=== PATIENT | female | born 1940 | race Asian ===

== ENCOUNTER 2016-11-11 20:58 | Inpatient (IN) | payer OTHER ==
[~2016-11-11] VITALS: Ht 157.5 cm; Wt 97.2 kg
[~2016-11-11 20:58] MED LIST: AMITRIPTYLINE H25 MG PO; AMLODIPINE BESY10 MG PO; AMLODIPINE BESYL5 MG PO; APRESOLINE10 MG PO; APRESOLINE25 MG PO; ASPIR 8181 M1 PO; ASPIR-LOW81 MG PO; ASPIRIN81 M2 PO; ATARAX10 MG PO; AUGMENTIN875 MG PO; CALCITRIOL0.25 MCG PO; CARDIZEM CD120 M1 PO; CARDIZEM CD120 MG PO; CARTIA XT120 MG PO; DOXYCYCLINE HY100 MG PO; DURAGESIC25 MCG TD; DURAGESIC50 MCG TD; ENDOCET 5-3251 EACH PO; ERGOCALCIF50000 UNIT PO; ESCITALOPRAM OX10 MG PO; FAMVIR500 MG PO; FENTANYL1 EAC5 TD; FERROUS SULFAT325 MG PO; FISH OIL 1,0001 EA10 PO; FISH OIL 1,0001 EAC7 PO; FISH OIL 1,0001 EAC8 PO; FUROSEMIDE20 MG PO; HEPARIN SO5000 UNITS SC; HUMALOG100 UNIT/2 SC; HYCODAN SYRUP480 ML PO; HYDRALAZINE HC100 MG PO; HYDROXYZINE HCL10 MG PO; IMDUR60 MG PO; IRON325 M1 PO; IRON325 MG PO; ISOSORBIDE MONO60 MG PO; KENALOG,ARISTOC80 G1 TP; KETOCONAZOLE60 GM TP; LANTUS 3 M100 UNITS1 SC; LASIX20 MG PO; LASIX40 MG PO; LEVAQUIN500 MG PO; LEVEMIR FL100 UNIT/1 SC; LEVOFLOXACIN750 MG PO; LEVOTHYROXINE137 MCG PO; LIDEX 0.05% OIN15 GM TP; LOPRESSOR25 MG PO; LOPRESSOR50 MG PO; LORATADINE10 M2 PO; LYRICA150 MG PO; METOPROLOL TART25 MG PO; METOPROLOL TART50 MG PO; NITROSTAT0.4 MG SL; NORVASC5 MG PO; OMEPRAZOLE20 M2 PO; OMEPRAZOLE20 MG PO; PRADAXA75 MG PO; PRAVASTATIN SOD40 MG PO; PRILOSEC20 MG PO; PROAIR HFA8.5 GM IH; ROCALTROL0.25 MCG PO; ST. JOSEPH ASPI81 MG PO; SYNTHROID137 MCG PO; TRAMADOL HCL50 MG PO; TYLENOL REGULA325 MG PO; ULTRAM50 MG PO; VISINE A.C300 DROP/1 BOTH EYES; VITAMIN D250000 UNIT PO; VOLTAREN 1% GE100 GM TP; XARELTO15 MG PO; ZOCOR40 MG PO
[2016-11-11 21:57] LABS: ADD MIUA? NO; BILIRUBIN NEGATIVE; BLOOD NEGATIVE; COLOR YELLOW ((YELLOW)); GLUCOSE (STRIP) NEGATIVE; KETONES NEGATIVE; LEUKOCYTES NEGATIVE; NITRITE NEGATIVE; PROTEIN (STRIP) NEGATIVE; SPECIFIC GRAVITY 1.012 (1.000-1.030); UCUL ADDED? NO; UROBILINOGEN 0.2 MG/DL (0.2-1.0)
[2016-11-11 22:15] LABS: CHLORIDE 111 mEq/L (99-109); SODIUM 130 mEq/L (136-147)
[2016-11-11 22:18] LABS: GLUCOSE 247 mg/dL (70-99)
[2016-11-11 22:18] LABS: INTER. NORMALIZED RATIO 1.1; PTT 30.9 (25-32)
[2016-11-11 22:19] LABS: ANION GAP 8 MEQ/L (2-14)
[2016-11-11 22:20] LABS: HEMATOCRIT 21.5 % (36.0-46.0); MCH 28.5 PG (29.0-34.0); MCHC 31.2 G/DL (30.0-36.0); MCV 91.5 FL (83-99); MEAN PLAT.VOLUME 12.4 uM^3 (9.5-12.4); NRBC (%) 2.6 /100 WBC (0-0); PLATELET COUNT 173 K/uL (156-360); RBC DIS.WIDTH-CV 18.7 % (11.8-14.6); RBC DIS.WIDTH-SD 59.8 % (39-53); RED BLOOD COUNT 2.35 M/uL (3.80-5.20); WHITE BLOOD COUNT 5.4 K/uL (4.1-10.2)
[2016-11-11 22:20] LABS: POTASSIUM 6.6 mEq/L (3.7-5.4); TOTAL BILIRUBIN 0.3 mg/dL (0.0-1.0)
[2016-11-11 22:21] LABS: ALKALINE PHOSPHATASE 55 IU/L (3-129); GFR ESTIMATE (CALCULATED) 13 mL/min/
[2016-11-11 22:25] LABS: TROP-I INTERPRETATION NEGATIVE; TROPONIN-I < 0.01 ng/mL (0.0-0.30)
[2016-11-11 22:25] LABS: LIPASE 63 U/L (1.0-51.0)
[2016-11-11 22:26] LABS: UREA NITROGEN (BUN) 105 mg/dL (9-23)
[2016-11-11 23:20] VITALS: BP 129/77
[2016-11-11] MEDS ORDERED: LEVO-T137 MCG PO (23:20)
[2016-11-11] MEDS ORDERED: FERROUS SULFAT325 MG PO (23:21)
[2016-11-11] MEDS ORDERED: OMEPRAZOLE20 MG PO (23:21)
[2016-11-11] MEDS ORDERED: NORVASC10 MG PO (23:22)
[2016-11-11] MEDS ORDERED: ISOSORBIDE MONO60 MG PO (23:22)
[2016-11-11] MEDS ORDERED: CALCITRIOL0.25 MCG PO (23:22)
[2016-11-11] MEDS ORDERED: ASPIR 8181 M1 PO (23:22)
[2016-11-11] MEDS ORDERED: HYDRALAZINE HCL25 MG PO (23:23)
[2016-11-11] MEDS ORDERED: LYRICA150 MG PO (23:23)
[2016-11-11] MEDS ORDERED: TRAMADOL HCL50 MG PO (23:23)
[2016-11-11] MEDS ORDERED: LANTUS 3 M100 UNITS1 SC (23:24)
[2016-11-11] MEDS ORDERED: XARELTO15 MG PO (23:24)
[2016-11-11] MEDS ORDERED: HUMALOG100 UNIT/2 SC (23:24)
[2016-11-11] MEDS ORDERED: PRAVASTATIN SOD40 MG PO (23:24)
[2016-11-11] MEDS ORDERED: NITROGLYCERIN0.4 MG SL (23:25)
[2016-11-11] MEDS ORDERED: PROAIR HFA8.5 GM IH (23:25)
[2016-11-11] MEDS ORDERED: LIDEX 0.05% OIN15 GM TP (23:26)
[2016-11-11] MEDS ORDERED: TRIAMCINOLONE A15 G2 TP (23:27)
[2016-11-11] MEDS ORDERED: OMEGA 3 500 SO1 EACH PO (23:27)
[2016-11-11 23:38] VITALS: BP 103/61
[2016-11-12] VITALS (21 sets, daily range): BP systolic 94–133; BP diastolic 55–690
[2016-11-12 01:01] LABS: POINT-OF-CARE METER ID UU14162508
[2016-11-12 06:46] LABS: METH RESISTANT S AUREUS PCR POSITIVE (NEGATIVE)
[2016-11-12 06:47] LABS: PROBE CHECK PASS
[2016-11-12 07:00] LABS: POINT-OF-CARE METER ID UU14162508
[2016-11-12] MEDS ORDERED: HUMALOG100 UNIT/2 SC (11:41)
[2016-11-12 11:56] LABS: POINT-OF-CARE METER ID UU14162508
[2016-11-12 12:33] LABS: ANION GAP 7 MEQ/L (2-14); CHLORIDE 112 MEQ/L (99-109); GFR ESTIMATE (CALCULATED) 16 mL/min/; GLUCOSE 132 mg/dL (70-99); SAMPLE HEMOLYSIS CHECK 0; SAMPLE ICTERIC CHECK 0; SAMPLE LIPEMIA CHECK 0; SODIUM 136 MEQ/L (136-147); UREA NITROGEN (BUN) 89 mg/dL (9-23)
[2016-11-12 12:33] LABS: IRON 37 MCG/DL (35-150)
[2016-11-12 12:34] LABS: POTASSIUM 4.9 MEQ/L (3.7-5.4)
[2016-11-12 18:01] LABS: HEMATOCRIT 30.7 % (36.0-46.0); MCH 28.2 PG (29.0-34.0); MCHC 31.3 G/DL (30.0-36.0); NRBC (%) 1.6 /100 WBC (0-0); PLATELET COUNT 138 K/uL (156-360); RBC DIS.WIDTH-SD 56.4 % (39-53); WHITE BLOOD COUNT 6.9 K/uL (4.1-10.2)
[2016-11-12 18:58] LABS: RED BLOOD COUNT 3.41 M/uL (3.80-5.20)
[2016-11-12 21:44] LABS: POINT-OF-CARE METER ID UU14162508
[2016-11-13 03:08] VITALS: BP 136/74
[2016-11-13 06:41] LABS: HEMATOCRIT 33.5 % (36.0-46.0); MCH 28.1 PG (29.0-34.0); MCHC 31.3 G/DL (30.0-36.0); MCV 89.6 FL (83-99); MEAN PLAT.VOLUME 11.8 uM^3 (9.5-12.4); NRBC (%) 1.3 /100 WBC (0-0); PLATELET COUNT 140 K/uL (156-360); RBC DIS.WIDTH-CV 18.3 % (11.8-14.6); RBC DIS.WIDTH-SD 55.5 % (39-53); RED BLOOD COUNT 3.74 M/uL (3.80-5.20); WHITE BLOOD COUNT 8.6 K/uL (4.1-10.2)
[2016-11-13 07:00] LABS: POINT-OF-CARE METER ID UU14162508
[2016-11-13 07:05] LABS: ANION GAP 10 MEQ/L (2-14); CHLORIDE 111 MEQ/L (99-109); GFR ESTIMATE (CALCULATED) 16 mL/min/; GLUCOSE 145 mg/dL (70-99); POTASSIUM 4.4 MEQ/L (3.7-5.4); SAMPLE HEMOLYSIS CHECK 0; SAMPLE ICTERIC CHECK 0; SAMPLE LIPEMIA CHECK 0; SODIUM 138 MEQ/L (136-147); UREA NITROGEN (BUN) 77 mg/dL (9-23)
[2016-11-13 07:40] VITALS: BP 136/81
[2016-11-13 07:44] LABS: INTACT PARATHYROID HORMONE 179 pg/mL (10-69)
[2016-11-13 11:35] VITALS: BP 139/69
[2016-11-13 15:55] VITALS: BP 117/67
[2016-11-13 20:03] VITALS: BP 158/68
[2016-11-14 00:20] VITALS: BP 126/79
[2016-11-14 04:20] VITALS: BP 137/71
[2016-11-14 07:10] VITALS: BP 112/63
[2016-11-14 07:29] LABS: ANION GAP 10 MEQ/L (2-14); CHLORIDE 111 MEQ/L (99-109); GFR ESTIMATE (CALCULATED) 20 mL/min/; GLUCOSE 134 mg/dL (70-99); POTASSIUM 4.6 MEQ/L (3.7-5.4); SAMPLE HEMOLYSIS CHECK 0; SAMPLE ICTERIC CHECK 0; SAMPLE LIPEMIA CHECK 0; SODIUM 140 MEQ/L (136-147); UREA NITROGEN (BUN) 58 mg/dL (9-23)
[2016-11-14 15:44] LABS: POINT-OF-CARE METER ID UU13113694
[2016-11-14 16:47] LABS: POINT-OF-CARE METER ID UU13113819
[2016-11-14 17:45] VITALS: BP 124/71
[2016-11-14 21:48] VITALS: BP 123/89
[2016-11-14 22:14] LABS: POINT-OF-CARE METER ID UU14162508
[2016-11-15 00:26] VITALS: BP 118/62
[2016-11-15 03:44] VITALS: BP 129/76
[2016-11-15 07:15] LABS: POINT-OF-CARE METER ID UU14162508
[2016-11-15 07:31] LABS: ANION GAP 6 MEQ/L (2-14); CHLORIDE 112 MEQ/L (99-109); GFR ESTIMATE (CALCULATED) 21 mL/min/; POTASSIUM 4.8 MEQ/L (3.7-5.4); SAMPLE HEMOLYSIS CHECK 0; SAMPLE ICTERIC CHECK 0; SAMPLE LIPEMIA CHECK 0; SODIUM 138 MEQ/L (136-147); UREA NITROGEN (BUN) 50 mg/dL (9-23)
[2016-11-15 07:36] LABS: GLUCOSE 235 mg/dL (70-99)
[2016-11-15 08:00] VITALS: BP 129/81
[2016-11-15 12:07] LABS: POINT-OF-CARE METER ID UU14162508
[2016-11-15 15:42] VITALS: BP 128/83
[2016-11-15 15:53] LABS: POINT-OF-CARE METER ID UU14162508
[2016-11-15 19:58] VITALS: BP 138/796
[2016-11-15 23:49] VITALS: BP 121/73
[2016-11-16 03:59] VITALS: BP 139/67
[2016-11-16 07:19] VITALS: BP 157/73
[2016-11-16 11:19] VITALS: BP 121/56
[2016-11-16 15:53] VITALS: BP 134/64
[2016-11-16 19:38] VITALS: BP 119/56
[2016-11-16 23:13] VITALS: BP 129/68
[2016-11-17 03:08] VITALS: BP 124/58
[2016-11-17 06:42] LABS: POINT-OF-CARE METER ID UU14162508
[2016-11-17 07:06] VITALS: BP 138/92
[2016-11-17 11:46] VITALS: BP 131/76
[2016-11-17 16:06] VITALS: BP 128/72
[2016-11-17 19:33] VITALS: BP 125/68
[2016-11-17 19:34] LABS: CHLORIDE 108 mEq/L (99-109); POTASSIUM 4.8 mEq/L (3.7-5.4); SODIUM 134 mEq/L (136-147)
[2016-11-17 19:37] LABS: ANION GAP 7 MEQ/L (2-14); GLUCOSE 103 mg/dL (70-99)
[2016-11-17 19:40] LABS: GFR ESTIMATE (CALCULATED) 23 mL/min/
[2016-11-17 19:41] LABS: UREA NITROGEN (BUN) 35 mg/dL (9-23)
[2016-11-17 23:18] VITALS: BP 131/65
[2016-11-18 03:39] VITALS: BP 130/61
[2016-11-18 06:25] LABS: HEMATOCRIT 34.3 % (36.0-46.0); MCH 31.1 PG (29.0-34.0); MCHC 34.4 G/DL (30.0-36.0); MCV 90.5 FL (83-99); RBC DIS.WIDTH-CV 19.7 % (11.8-14.6); RBC DIS.WIDTH-SD 58.9 % (39-53); RED BLOOD COUNT 3.79 M/uL (3.80-5.20)
[2016-11-18 06:50] LABS: ALKALINE PHOSPHATASE 52 IU/L (3-129); ANION GAP 9 MEQ/L (2-14); CHLORIDE 105 MEQ/L (99-109); GFR ESTIMATE (CALCULATED) 23 mL/min/; GLUCOSE 157 mg/dL (70-99); SAMPLE HEMOLYSIS CHECK 0; SAMPLE ICTERIC CHECK 0; SAMPLE LIPEMIA CHECK 0; SODIUM 134 MEQ/L (136-147); TOTAL BILIRUBIN 0.6 MG/DL (0.0-1.0); UREA NITROGEN (BUN) 32 mg/dL (9-23)
[2016-11-18 07:08] VITALS: BP 144/76
[2016-11-18 11:20] VITALS: BP 132/62
[2016-11-18 15:21] VITALS: BP 147/73
[2016-11-18 19:24] VITALS: BP 137/66
[2016-11-18] MEDS ORDERED: CARDIZEM CD180 MG PO (19:57)
[2016-11-18] MEDS ORDERED: LEVEMIR100 UNIT/2 SC (20:13)
[2016-11-18] MEDS ORDERED: POLYETHYLENE GL17 GM PO (20:20)
== END 2016-11-18 21:56 | disposition home or self-care (01) | DRG 378 ==
LOC: EME 20:58 → 2EAST 22:52 → EDOF 22:52 → 2EAST 11-12 00:41
PROVIDERS: Emergency Medicine; Internal Medicine; Internal Medicine Nephrology
PROC: 0DB68ZX Excision of Stomach, Via Natural or Artificial Opening Endoscopic, Diagnostic (ICD-10-PCS; principal; 2016-11-14)
DX: K92.2 Gastrointestinal hemorrhage, unspecified (principal); N17.9 Acute kidney failure, unspecified; D25.9 Leiomyoma of uterus, unspecified; E87.5 Hyperkalemia; D63.1 Anemia in chronic kidney disease; E87.1 Hypo-osmolality and hyponatremia; K92.1 Melena; E11.22 Type 2 diabetes mellitus with diabetic chronic kidney disease; E87.2 Acidosis; I12.9 Hypertensive chronic kidney disease with stage 1 through stage 4 chronic kidney disease, or unspecified chronic kidney disease; N18.4 Chronic kidney disease, stage 4 (severe); K29.90 Gastroduodenitis, unspecified, without bleeding; N25.81 Secondary hyperparathyroidism of renal origin; E66.01 Morbid (severe) obesity due to excess calories; I25.10 Atherosclerotic heart disease of native coronary artery without angina pectoris; N28.9 Disorder of kidney and ureter, unspecified; R41.82 Altered mental status, unspecified; K30 Functional dyspepsia; E78.5 Hyperlipidemia, unspecified; G89.29 Other chronic pain; E03.9 Hypothyroidism, unspecified; R80.9 Proteinuria, unspecified; R60.0 Localized edema; M54.9 Dorsalgia, unspecified; R53.1 Weakness; I48.0 Paroxysmal atrial fibrillation; E86.9 Volume depletion, unspecified; R79.89 Other specified abnormal findings of blood chemistry; K29.70 Gastritis, unspecified, without bleeding; Z95.5 Presence of coronary angioplasty implant and graft; Z86.73 Personal history of transient ischemic attack (TIA), and cerebral infarction without residual deficits; I25.2 Old myocardial infarction; Z68.38 Body mass index [BMI] 38.0-38.9, adult; Q43.8 Other specified congenital malformations of intestine
CPT/HCPCS: 36415; 74176; 80053; 80061; 80069; 81003; 82306; 82948; 83036; 83540; 83605; 83690; 83970; 84100; 84439; 84443; 84466; 84484; 85025; 85027; 85610; 85730; 86900; 86901; 86920; 87641; 88305; 88342 TC; 93005; 99202; 99281; 99285; J1170; J1756; J1815; J1940; J2250; J2270; J2405; J3010; J7030; J7050; P9016; Q0177

== ENCOUNTER 2016-12-22 20:58 | Emergency (ER) | payer OTHER ==
[~2016-12-22] VITALS: Ht 139.7 cm; Wt 99.8 kg
[~2016-12-22 20:58] MED LIST changes: +CARDIZEM CD180 MG PO; +HYDRALAZINE HCL25 MG PO; +LEVEMIR100 UNIT/2 SC; +LEVO-T137 MCG PO; +NITROGLYCERIN0.4 MG SL; +NORVASC10 MG PO; +OMEGA 3 500 SO1 EACH PO; +POLYETHYLENE GL17 GM PO; +TRIAMCINOLONE A15 G2 TP
[2016-12-22 21:19] LABS: HEMATOCRIT 33.9 % (36.0-46.0); MCH 28.4 PG (29.0-34.0); MCHC 31.6 G/DL (30.0-36.0); MCV 89.9 FL (83-99); MEAN PLAT.VOLUME 10.8 uM^3 (9.5-12.4); PLATELET COUNT 195 K/uL (156-360); RBC DIS.WIDTH-SD 49.5 % (39-53); RED BLOOD COUNT 3.77 M/uL (3.80-5.20); WHITE BLOOD COUNT 5.4 K/uL (4.1-10.2)
[2016-12-22 21:44] LABS: CHLORIDE 101 mEq/L (99-109); POTASSIUM 4.8 mEq/L (3.7-5.4); SODIUM 132 mEq/L (136-147)
[2016-12-22 21:45] LABS: GLUCOSE 170 mg/dL (70-99)
[2016-12-22 21:47] LABS: ANION GAP 8 MEQ/L (2-14)
[2016-12-22 21:49] LABS: GFR ESTIMATE (CALCULATED) 18 mL/min/
[2016-12-22 21:50] LABS: UREA NITROGEN (BUN) 38 mg/dL (9-23)
[2016-12-22 21:58] LABS: INTER. NORMALIZED RATIO 1.1; PROTHROMBIN TIME 11.3 (9.2-11.2)
[2016-12-23 02:22] VITALS: BP 119/91
== END 2016-12-23 02:24 | disposition home or self-care (01) ==
LOC: EME → EDBD 20:58 → EME 12-23 02:24
PROVIDERS: Emergency Medicine
DX: S01.81XA Laceration without foreign body of other part of head, initial encounter (principal); E11.9 Type 2 diabetes mellitus without complications; E78.5 Hyperlipidemia, unspecified; W18.30XA Fall on same level, unspecified, initial encounter; I11.0 Hypertensive heart disease with heart failure; I50.9 Heart failure, unspecified; I25.2 Old myocardial infarction; Z79.84 Long term (current) use of oral hypoglycemic drugs
CPT/HCPCS: 70450; 73564; 80048; 85027; 85610; 99281; 99285

== ENCOUNTER 2017-06-03 17:06 | Inpatient (IN) | payer OTHER ==
[~2017-06-03] VITALS: Ht 157.5 cm; Wt 94.5 kg
[2017-06-03 17:49] LABS: EOSINOPHIL (%) 3.4 % (0-5); EOSINOPHIL COUNT 0.2 K/uL (0-0.3); HEMATOCRIT 34.3 % (36.0-46.0); IMMATURE GRANULOCYTE (%) 0.4 % (0.0-0.7); INSTRUMENT ABS NEUTROPHIL CT 5.1 K/uL; LYMPHOCYTE COUNT 0.7 K/uL (1.0-2.8); MCH 29.6 PG (29.0-34.0); MCHC 32.4 G/DL (30.0-36.0); MCV 91.5 FL (83-99); MEAN PLAT.VOLUME 12.6 uM^3 (9.5-12.4); MONOCYTE (%) 9.8 % (3-12); MONOCYTE COUNT 0.7 K/uL (0-0.8); NEUTROPHIL (%) 76.1 % (45-76); NEUTROPHIL COUNT 5.1 K/uL (1.8-6.4); PLATELET COUNT 111 K/uL (156-360); RBC DIS.WIDTH-CV 14.8 % (11.8-14.6); RBC DIS.WIDTH-SD 49.7 % (39-53); RED BLOOD COUNT 3.75 M/uL (3.80-5.20); WHITE BLOOD COUNT 6.7 K/uL (4.1-10.2)
[2017-06-03 17:55] LABS: INTER. NORMALIZED RATIO 1.3
[2017-06-03 17:57] LABS: PTT 41.3 SEC (25-37)
[2017-06-03 18:00] LABS: CHLORIDE 102 mEq/L (99-109); POTASSIUM 3.6 mEq/L (3.7-5.4); SODIUM 138 mEq/L (136-147)
[2017-06-03 18:01] LABS: GLUCOSE 119 mg/dL (70-99)
[2017-06-03 18:03] LABS: ANION GAP 10 MEQ/L (2-14)
[2017-06-03 18:05] LABS: GFR ESTIMATE (CALCULATED) 23 mL/min/
[2017-06-03 18:06] LABS: UREA NITROGEN (BUN) 41 mg/dL (9-23)
[2017-06-03 18:12] LABS: TROP-I INTERPRETATION NEGATIVE; TROPONIN-I < 0.01 ng/mL (0.0-0.30)
[2017-06-03 18:23] LABS: ADD MIUA? NO; BILIRUBIN NEGATIVE; BLOOD NEGATIVE; COLOR STRAW ((YELLOW)); GLUCOSE (STRIP) NEGATIVE; KETONES NEGATIVE; LEUKOCYTES NEGATIVE; NITRITE NEGATIVE; PROTEIN (STRIP) NEGATIVE; SPECIFIC GRAVITY 1.006 (1.000-1.030); UCUL ADDED? NO; UROBILINOGEN 0.2 MG/DL (0.2-1.0)
[2017-06-03] MEDS ORDERED: LOPRESSOR50 MG PO (22:02)
[2017-06-03] MEDS ORDERED: ATARAX10 MG PO (22:03)
[2017-06-03] MEDS ORDERED: LANTUS 3 M100 UNITS1 SC (22:12)
[2017-06-03] MEDS ORDERED: FUROSEMIDE40 MG PO (22:17)
[2017-06-03] MEDS ORDERED: CIPROFLOXACIN500 M1 PO (22:19)
[2017-06-04] VITALS (18 sets, daily range): BP systolic 0–167; BP diastolic 0–110
[2017-06-04 03:01] LABS: METH RESISTANT S AUREUS PCR NEGATIVE (NEGATIVE)
[2017-06-04 03:05] LABS: PROBE CHECK PASS; SPECIMEN PROCESSING CONTROL PASS
[2017-06-04 05:34] LABS: MCH 29.1 PG (29.0-34.0); MCHC 31.4 G/DL (30.0-36.0); MCV 92.6 FL (83-99); PLATELET COUNT 104 K/uL (156-360); RBC DIS.WIDTH-CV 15.2 % (11.8-14.6); RBC DIS.WIDTH-SD 51.7 % (39-53); RED BLOOD COUNT 3.78 M/uL (3.80-5.20)
[2017-06-04 05:56] LABS: ANION GAP 10 MEQ/L (2-14); CHLORIDE 103 MEQ/L (99-109); GFR ESTIMATE (CALCULATED) 26 mL/min/; GLUCOSE 109 mg/dL (70-99); HDL CHOLESTEROL 27 MG/DL (Desirable>=50); LDL CHOLESTEROL 26 mg/dL (Desirable<100); NON-HDL CHOLESTEROL 38 mg/dL (Desirable<160); POTASSIUM 3.5 MEQ/L (3.7-5.4); SAMPLE HEMOLYSIS CHECK 0; SAMPLE ICTERIC CHECK 0; SAMPLE LIPEMIA CHECK 0; SODIUM 142 MEQ/L (136-147); TOTAL CHOLESTEROL 65 mg/dL (Desirable<200); TRIGLYCERIDES 62 MG/DL (Normal: <150); UREA NITROGEN (BUN) 40 mg/dL (9-23)
[2017-06-04 07:32] LABS: Estimated Average Glucose 146 mg/dL (70-123); HEMOGLOBIN A1c (GLYCOHEMOGLOB) 6.7 % HGB (Below 5.7)
[2017-06-04 13:13] LABS: POINT-OF-CARE METER ID UU14162513
[2017-06-04 16:17] LABS: BASE EXCESS -0.4 mEq/L (-3 to +3); BICARBONATE 25.9 mEq/L (22-26); CARBOXY HGB 1.1 % (0-5); PCO2 48 mm Hg (35-45); PO2 59 mm Hg (80-100); pH 7.34 (7.35-7.45)
[2017-06-04 16:18] LABS: DEVICE NC; O2 FLOW 4 L/MIN; SITE RR; TOTAL RESP RATE 26 resp/min
[2017-06-04 16:35] LABS: HEMATOCRIT 38.2 % (36.0-46.0); MCH 29.9 PG (29.0-34.0); MCHC 31.7 G/DL (30.0-36.0); MCV 94.3 FL (83-99); MEAN PLAT.VOLUME 12.9 uM^3 (9.5-12.4); PLATELET COUNT 114 K/uL (156-360); RBC DIS.WIDTH-CV 15.2 % (11.8-14.6); RBC DIS.WIDTH-SD 53.2 % (39-53); RED BLOOD COUNT 4.05 M/uL (3.80-5.20); WHITE BLOOD COUNT 8.8 K/uL (4.1-10.2)
[2017-06-04 16:43] LABS: POINT-OF-CARE METER ID UU13113781; POINT-OF-CARE USER ID ENVKC36
[2017-06-04 16:56] LABS: TROP-I INTERPRETATION NEGATIVE; TROPONIN-I 0.01 ng/mL (0.0-0.30)
[2017-06-04 17:18] LABS: ADD MIUA? YES; BILIRUBIN NEGATIVE; BLOOD SMALL; COLOR STRAW ((YELLOW)); GLUCOSE (STRIP) NEGATIVE; KETONES NEGATIVE; LEUKOCYTES NEGATIVE; NITRITE NEGATIVE; PROTEIN (STRIP) 30; SPECIFIC GRAVITY 1.006 (1.000-1.030); UROBILINOGEN 0.2 MG/DL (0.2-1.0)
[2017-06-04 17:41] LABS: POINT-OF-CARE METER ID UU14208751
[2017-06-04 17:55] LABS: BACTERIA NONE SEEN /HPF; EPITHELIAL CELLS NONE SEEN /HPF; MUCUS TRACE /LPF; RED BLOOD CELLS 0-5 /HPF (0-5); UCUL ADDED? NO; WHITE BLOOD CELLS 0-5 /HPF (0-5)
[2017-06-04 18:39] LABS: METH RESISTANT S AUREUS PCR NEGATIVE (NEGATIVE)
[2017-06-04 19:29] LABS: PROBE CHECK PASS; SPECIMEN PROCESSING CONTROL PASS
[2017-06-04 22:07] LABS: POINT-OF-CARE METER ID UU13113803
[2017-06-05] VITALS (20 sets, daily range): BP systolic 93–169; BP diastolic 48–106
[2017-06-05 00:37] LABS: POINT-OF-CARE METER ID UU14208751
[2017-06-05 05:58] LABS: POINT-OF-CARE METER ID UU14314082
[2017-06-05 06:31] LABS: HEMATOCRIT 35.7 % (36.0-46.0); MCHC 31.4 G/DL (30.0-36.0); MCV 92.5 FL (83-99); MEAN PLAT.VOLUME 11.7 uM^3 (9.5-12.4); PLATELET COUNT 103 K/uL (156-360); RBC DIS.WIDTH-CV 15.1 % (11.8-14.6); RBC DIS.WIDTH-SD 51.5 % (39-53); RED BLOOD COUNT 3.86 M/uL (3.80-5.20); WHITE BLOOD COUNT 5.3 K/uL (4.1-10.2)
[2017-06-05 07:05] LABS: ALKALINE PHOSPHATASE 113 IU/L (3-129); ANION GAP 10 MEQ/L (2-14); CHLORIDE 101 MEQ/L (99-109); GFR ESTIMATE (CALCULATED) 24 mL/min/; GLUCOSE 184 mg/dL (70-99); POTASSIUM 3.4 MEQ/L (3.7-5.4); SAMPLE HEMOLYSIS CHECK 0; SAMPLE ICTERIC CHECK 0; SAMPLE LIPEMIA CHECK 0; SODIUM 140 MEQ/L (136-147); TOTAL BILIRUBIN 0.7 MG/DL (0.0-1.0); UREA NITROGEN (BUN) 37 mg/dL (9-23)
[2017-06-05 12:12] LABS: POINT-OF-CARE METER ID UU14314082
[2017-06-05 18:25] LABS: POINT-OF-CARE METER ID UU14162636
[2017-06-05 22:49] LABS: POINT-OF-CARE METER ID UU14162636
[2017-06-06] VITALS (13 sets, daily range): BP systolic 103–144; BP diastolic 43–94
[2017-06-06 06:25] LABS: EOSINOPHIL (%) 8.4 % (0-5); EOSINOPHIL COUNT 0.4 K/uL (0-0.3); HEMATOCRIT 34.9 % (36.0-46.0); IMMATURE GRANULOCYTE (%) 0.2 % (0.0-0.7); INSTRUMENT ABS NEUTROPHIL CT 2.6 K/uL; LYMPHOCYTE COUNT 0.8 K/uL (1.0-2.8); MCHC 32.4 G/DL (30.0-36.0); MCV 92.6 FL (83-99); MEAN PLAT.VOLUME 12.9 uM^3 (9.5-12.4); MONOCYTE (%) 12.5 % (3-12); MONOCYTE COUNT 0.6 K/uL (0-0.8); NEUTROPHIL (%) 59.6 % (45-76); NEUTROPHIL COUNT 2.6 K/uL (1.8-6.4); PLATELET COUNT 109 K/uL (156-360); RBC DIS.WIDTH-CV 15.3 % (11.8-14.6); RBC DIS.WIDTH-SD 52.4 % (39-53); RED BLOOD COUNT 3.77 M/uL (3.80-5.20); WHITE BLOOD COUNT 4.4 K/uL (4.1-10.2)
[2017-06-06 06:45] LABS: ALKALINE PHOSPHATASE 114 IU/L (3-129); ANION GAP 9 MEQ/L (2-14); CHLORIDE 103 MEQ/L (99-109); DIRECT BILIRUBIN 0.2 mg/dL (0.0-0.3); GFR ESTIMATE (CALCULATED) 24 mL/min/; GLUCOSE 126 mg/dL (70-99); MAGNESIUM 1.7 mg/dl (1.3-2.7); POTASSIUM 3.8 MEQ/L (3.7-5.4); SAMPLE HEMOLYSIS CHECK 0; SAMPLE ICTERIC CHECK 0; SAMPLE LIPEMIA CHECK 0; SODIUM 143 MEQ/L (136-147); TOTAL BILIRUBIN 0.5 MG/DL (0.0-1.0); UREA NITROGEN (BUN) 37 mg/dL (9-23)
[2017-06-06 12:15] LABS: POINT-OF-CARE METER ID UU13113731
[2017-06-06 17:13] LABS: POINT-OF-CARE METER ID UU13113731
[2017-06-06 21:49] LABS: POINT-OF-CARE METER ID UU13113774
[2017-06-07 00:13] VITALS: BP 146/70
[2017-06-07 06:18] LABS: HEMATOCRIT 34.1 % (36.0-46.0); MCH 29.9 PG (29.0-34.0); MCHC 32.8 G/DL (30.0-36.0); MCV 91.2 FL (83-99); MEAN PLAT.VOLUME 12.7 uM^3 (9.5-12.4); PLATELET COUNT 107 K/uL (156-360); RBC DIS.WIDTH-CV 15.1 % (11.8-14.6); RBC DIS.WIDTH-SD 50.4 % (39-53); RED BLOOD COUNT 3.74 M/uL (3.80-5.20); WHITE BLOOD COUNT 4.1 K/uL (4.1-10.2)
[2017-06-07 06:48] LABS: ANION GAP 9 MEQ/L (2-14); CHLORIDE 100 MEQ/L (99-109); GFR ESTIMATE (CALCULATED) 22 mL/min/; POTASSIUM 3.8 MEQ/L (3.7-5.4); SAMPLE HEMOLYSIS CHECK 0; SAMPLE ICTERIC CHECK 0; SAMPLE LIPEMIA CHECK 0; SODIUM 139 MEQ/L (136-147); UREA NITROGEN (BUN) 36 mg/dL (9-23)
[2017-06-07 06:50] LABS: GLUCOSE 311 mg/dL (70-99)
[2017-06-07 08:53] VITALS: BP 141/63
[2017-06-07 11:43] VITALS: BP 134/75
[2017-06-07 13:03] LABS: POINT-OF-CARE METER ID UU13113774
[2017-06-07 15:39] VITALS: BP 134/75
[2017-06-07 15:57] LABS: POINT-OF-CARE METER ID UU13113774
[2017-06-07 19:52] VITALS: BP 124/55
[2017-06-07 21:29] LABS: POINT-OF-CARE METER ID UU13113725
[2017-06-08 00:09] VITALS: BP 119/64; BP 124/55
[2017-06-08 05:30] VITALS: BP 120/61
[2017-06-08 05:59] LABS: HEMATOCRIT 32.1 % (36.0-46.0); MCH 29.4 PG (29.0-34.0); MCHC 32.7 G/DL (30.0-36.0); MCV 89.9 FL (83-99); MEAN PLAT.VOLUME 12.2 uM^3 (9.5-12.4); PLATELET COUNT 111 K/uL (156-360); RBC DIS.WIDTH-CV 14.9 % (11.8-14.6); RBC DIS.WIDTH-SD 49.4 % (39-53); RED BLOOD COUNT 3.57 M/uL (3.80-5.20); WHITE BLOOD COUNT 6.1 K/uL (4.1-10.2)
[2017-06-08 06:30] LABS: POINT-OF-CARE METER ID UU13113774
[2017-06-08 07:33] LABS: ANION GAP ND MEQ/L (2-14); CHLORIDE 98 MEQ/L (99-109); GLUCOSE 159 mg/dL (70-99); POTASSIUM 4.2 MEQ/L (3.7-5.4); SAMPLE HEMOLYSIS CHECK 0; SAMPLE ICTERIC CHECK 0; SAMPLE LIPEMIA CHECK 0; SODIUM 136 MEQ/L (136-147); UREA NITROGEN (BUN) 48 mg/dL (9-23)
[2017-06-08 07:54] VITALS: BP 127/60
[2017-06-08 08:02] LABS: GFR ESTIMATE (CALCULATED) 21 mL/min/
[2017-06-08 11:53] LABS: POINT-OF-CARE METER ID UU13113774
[2017-06-08 13:36] VITALS: BP 108/57
[2017-06-08 15:48] VITALS: BP 119/59
[2017-06-08 16:57] LABS: POINT-OF-CARE METER ID UU13113725
[2017-06-08 20:01] VITALS: BP 130/61
[2017-06-09 00:05] VITALS: BP 138/67
[2017-06-09 01:41] LABS: GLUCOSE 552 mg/dL (70-99)
[2017-06-09 04:21] VITALS: BP 124/59
[2017-06-09 06:10] LABS: HEMATOCRIT 35.9 % (36.0-46.0); MCH 28.5 PG (29.0-34.0); MCHC 31.5 G/DL (30.0-36.0); MCV 90.7 FL (83-99); MEAN PLAT.VOLUME 12.1 uM^3 (9.5-12.4); PLATELET COUNT 124 K/uL (156-360); RBC DIS.WIDTH-CV 14.6 % (11.8-14.6); RBC DIS.WIDTH-SD 48.8 % (39-53); RED BLOOD COUNT 3.96 M/uL (3.80-5.20); WHITE BLOOD COUNT 5.8 K/uL (4.1-10.2)
[2017-06-09 06:49] LABS: ANION GAP 12 MEQ/L (2-14); CHLORIDE 94 MEQ/L (99-109); GFR ESTIMATE (CALCULATED) 18 mL/min/; POTASSIUM 4.6 MEQ/L (3.7-5.4); SAMPLE HEMOLYSIS CHECK 0; SAMPLE ICTERIC CHECK 0; SAMPLE LIPEMIA CHECK 0; SODIUM 130 MEQ/L (136-147); UREA NITROGEN (BUN) 60 mg/dL (9-23)
[2017-06-09 06:50] LABS: GLUCOSE 470 mg/dL (70-99)
[2017-06-09 07:21] LABS: POINT-OF-CARE METER ID UU13113725
[2017-06-09 11:59] LABS: POINT-OF-CARE METER ID UU13113725
[2017-06-09 15:24] LABS: POINT-OF-CARE METER ID UU13113725
[2017-06-09 15:24] LABS: POINT-OF-CARE METER ID UU13113774
[2017-06-09 15:24] LABS: POINT-OF-CARE METER ID UU13113774
[2017-06-09 15:24] LABS: POINT-OF-CARE METER ID UU13113725
[2017-06-09 17:17] VITALS: BP 126/61
[2017-06-09 19:49] VITALS: BP 139/65
[2017-06-10 00:33] VITALS: BP 135/62
[2017-06-10 04:00] VITALS: BP 139/86
[2017-06-10 05:54] LABS: POINT-OF-CARE METER ID UU13113774
[2017-06-10 07:00] VITALS: BP 140/76
[2017-06-10 09:51] LABS: POINT-OF-CARE METER ID UU13113774
[2017-06-10 09:53] LABS: HEMATOCRIT 35.2 % (36.0-46.0); MCH 28.9 PG (29.0-34.0); MCHC 32.7 G/DL (30.0-36.0); MCV 88.4 FL (83-99); RBC DIS.WIDTH-CV 14.6 % (11.8-14.6); RBC DIS.WIDTH-SD 46.6 % (39-53); RED BLOOD COUNT 3.98 M/uL (3.80-5.20); WHITE BLOOD COUNT 8.9 K/uL (4.1-10.2)
[2017-06-10 10:06] LABS: PLATELET COUNT 167 K/uL (156-360)
[2017-06-10 10:31] LABS: ANION GAP 10 MEQ/L (2-14); CHLORIDE 96 MEQ/L (99-109); GFR ESTIMATE (CALCULATED) 19 mL/min/; POTASSIUM 3.8 MEQ/L (3.7-5.4); SAMPLE HEMOLYSIS CHECK 0; SAMPLE ICTERIC CHECK 0; SAMPLE LIPEMIA CHECK 0; SODIUM 134 MEQ/L (136-147); UREA NITROGEN (BUN) 65 mg/dL (9-23)
[2017-06-10 10:41] LABS: GLUCOSE 210 mg/dL (70-99)
[2017-06-10 11:32] LABS: POINT-OF-CARE METER ID UU13113774
[2017-06-10 11:34] VITALS: BP 132/62
[2017-06-10] MEDS ORDERED: PREDNISONE10 MG PO (12:43)
[2017-06-10] MEDS ORDERED: FUROSEMIDE40 MG PO (12:44)
[2017-06-10] MEDS ORDERED: LEVEMIR100 UNIT/2 SC (12:44)
[2017-06-10] MEDS ORDERED: ADVAIR HFA120 INHALA IH (12:44)
[2017-06-10 15:00] VITALS: BP 124/58
[2017-06-10 16:45] LABS: POINT-OF-CARE METER ID UU13113774
== END 2017-06-10 18:15 | disposition home health service (06) | DRG 291 ==
LOC: EME 17:06 → EDOF 22:24 → 5WEST 22:24 → ENRESERV 22:26 → 5WEST 06-04 00:19 → 4WEST 06-04 10:19 → 5WEST 06-04 10:19 → CANRESERV 06-04 10:23 → ENRESERV 06-04 10:23 → 5WEST 06-04 14:28 → ENRESERV 06-04 14:31 → 4EAST 06-04 15:35 → ENRESERV 06-04 16:36 → 4EAST 06-04 16:40 → 4WEST 06-04 16:44 → CANRESERV 06-06 10:21 → ENRESERV 06-06 10:21 → CANRESERV 06-06 14:00 → ENRESERV 06-06 14:00 → CANRESERV 06-06 14:38 → ENRESERV 06-06 15:00 → 5EAST 06-06 17:15
PROVIDERS: Emergency Medicine; Hospitalist; Internal Medicine Critical Care Medicine; Nurse Practitioner Family; Obstetrics & Gynecology
DX: I13.0 Hypertensive heart and chronic kidney disease with heart failure and stage 1 through stage 4 chronic kidney disease, or unspecified chronic kidney disease (principal); I50.33 Acute on chronic diastolic (congestive) heart failure; J18.9 Pneumonia, unspecified organism; I48.0 Paroxysmal atrial fibrillation; N18.4 Chronic kidney disease, stage 4 (severe); J44.0 Chronic obstructive pulmonary disease with (acute) lower respiratory infection; I65.21 Occlusion and stenosis of right carotid artery; J45.901 Unspecified asthma with (acute) exacerbation; N25.81 Secondary hyperparathyroidism of renal origin; E11.22 Type 2 diabetes mellitus with diabetic chronic kidney disease; E11.40 Type 2 diabetes mellitus with diabetic neuropathy, unspecified; E11.65 Type 2 diabetes mellitus with hyperglycemia; E87.2 Acidosis; I27.20 Pulmonary hypertension, unspecified; I07.1 Rheumatic tricuspid insufficiency; D63.1 Anemia in chronic kidney disease; R41.82 Altered mental status, unspecified; K21.9 Gastro-esophageal reflux disease without esophagitis; E03.9 Hypothyroidism, unspecified; E78.2 Mixed hyperlipidemia; I25.119 Atherosclerotic heart disease of native coronary artery with unspecified angina pectoris; M25.561 Pain in right knee; E66.9 Obesity, unspecified; Z68.38 Body mass index [BMI] 38.0-38.9, adult; I25.2 Old myocardial infarction; Z91.81 History of falling; Z95.5 Presence of coronary angioplasty implant and graft; Z79.4 Long term (current) use of insulin; Z86.73 Personal history of transient ischemic attack (TIA), and cerebral infarction without residual deficits; Z87.440 Personal history of urinary (tract) infections
CPT/HCPCS: 36600; 70450; 70551; 71010; 73564; 74176; 80048; 80053; 80061; 80076; 81003; 82803; 82948; 83036; 83605; 83735; 84100; 84484; 84999; 85025; 85027; 85610; 85730; 87040; 87070; 87086; 87205; 87502; 87641; 92526 GN; 92610 GN; 93005; 93306; 93880; 94640; 94640 76; 94799; 99202; 99281; 99285; G0378; J0456; J0692; J0696; J1644; J1815; J1940; J2060; J2270; J2920; J2930; J3475; J7030; J7042; J7050

== ENCOUNTER 2017-06-20 15:36 | Inpatient (IN) | payer OTHER ==
[~2017-06-20] VITALS: Ht 157.5 cm; Wt 98.0 kg
[~2017-06-20 15:36] MED LIST changes: +ADVAIR HFA120 INHALA IH; +CIPROFLOXACIN500 M1 PO; +FUROSEMIDE40 MG PO; +PREDNISONE10 MG PO
[2017-06-20 16:22] LABS: HEMATOCRIT 32.5 % (36.0-46.0); MCH 29.7 PG (29.0-34.0); MCHC 33.2 G/DL (30.0-36.0); MCV 89.3 FL (83-99); MEAN PLAT.VOLUME 12.9 uM^3 (9.5-12.4); PLATELET COUNT 154 K/uL (156-360); RBC DIS.WIDTH-CV 14.3 % (11.8-14.6); RBC DIS.WIDTH-SD 46.2 % (39-53); RED BLOOD COUNT 3.64 M/uL (3.80-5.20); WHITE BLOOD COUNT 8.2 K/uL (4.1-10.2)
[2017-06-20 16:29] LABS: CHLORIDE 107 mEq/L (99-109); POTASSIUM 3.7 mEq/L (3.7-5.4); SODIUM 141 mEq/L (136-147)
[2017-06-20 16:31] LABS: GLUCOSE 127 mg/dL (70-99)
[2017-06-20 16:32] LABS: ANION GAP 8 MEQ/L (2-14)
[2017-06-20 16:33] LABS: TOTAL BILIRUBIN 0.7 mg/dL (0.0-1.0)
[2017-06-20 16:34] LABS: ALKALINE PHOSPHATASE 137 IU/L (3-129)
[2017-06-20 16:35] LABS: GFR ESTIMATE (CALCULATED) 22 mL/min/
[2017-06-20 16:36] LABS: UREA NITROGEN (BUN) 84 mg/dL (9-23)
[2017-06-20 16:43] LABS: TROP-I INTERPRETATION NEGATIVE; TROPONIN-I < 0.01 ng/mL (0.0-0.30)
[2017-06-20 18:40] LABS: ADD MIUA? YES; BILIRUBIN NEGATIVE; BLOOD MODERATE; COLOR YELLOW ((YELLOW)); GLUCOSE (STRIP) NEGATIVE; KETONES NEGATIVE; LEUKOCYTES LARGE; NITRITE NEGATIVE; PROTEIN (STRIP) 30; SPECIFIC GRAVITY 1.011 (1.000-1.030); UROBILINOGEN 0.2 MG/DL (0.2-1.0)
[2017-06-20 18:47] LABS: BACTERIA RARE /HPF; EPITHELIAL CELLS 1+ /HPF; MUCUS TRACE /LPF; UCUL ADDED? YES
[2017-06-20] MEDS ORDERED: LANTUS 3 M100 UNITS1 SC (20:07)
[2017-06-20 21:55] VITALS: BP 120/56
[2017-06-21 06:26] LABS: POINT-OF-CARE METER ID UU13113774; POINT-OF-CARE USER ID 611181321
[2017-06-21 06:37] LABS: HEMATOCRIT 35.2 % (36.0-46.0); MCH 30.1 PG (29.0-34.0); MCHC 33.2 G/DL (30.0-36.0); MCV 90.5 FL (83-99); MEAN PLAT.VOLUME 13.5 uM^3 (9.5-12.4); PLATELET COUNT 154 K/uL (156-360); RBC DIS.WIDTH-CV 14.6 % (11.8-14.6); RBC DIS.WIDTH-SD 47.7 % (39-53); RED BLOOD COUNT 3.89 M/uL (3.80-5.20); WHITE BLOOD COUNT 5.3 K/uL (4.1-10.2)
[2017-06-21 07:15] LABS: ANION GAP 8 MEQ/L (2-14); CHLORIDE 107 MEQ/L (99-109); GFR ESTIMATE (CALCULATED) 27 mL/min/; GLUCOSE 130 mg/dL (70-99); POTASSIUM 3.8 MEQ/L (3.7-5.4); SAMPLE HEMOLYSIS CHECK 0; SAMPLE ICTERIC CHECK 0; SAMPLE LIPEMIA CHECK 0; SODIUM 142 MEQ/L (136-147); UREA NITROGEN (BUN) 68 mg/dL (9-23)
[2017-06-21 08:17] VITALS: BP 131/59
[2017-06-21 12:02] LABS: POINT-OF-CARE METER ID UU13113774
[2017-06-21 15:48] LABS: POINT-OF-CARE METER ID UU13113774
[2017-06-21 16:03] VITALS: BP 160/78
[2017-06-21 19:48] LABS: POINT-OF-CARE METER ID UU13113725; POINT-OF-CARE USER ID 611181321
[2017-06-22 07:07] LABS: POINT-OF-CARE METER ID UU13113774; POINT-OF-CARE USER ID 611181321
[2017-06-22 07:14] LABS: ANION GAP 12 MEQ/L (2-14); CHLORIDE 109 MEQ/L (99-109); GFR ESTIMATE (CALCULATED) 29 mL/min/; GLUCOSE 134 mg/dL (70-99); SAMPLE HEMOLYSIS CHECK 0; SAMPLE ICTERIC CHECK 0; SAMPLE LIPEMIA CHECK 0; SODIUM 145 MEQ/L (136-147); UREA NITROGEN (BUN) 53 mg/dL (9-23)
[2017-06-22 08:00] VITALS: BP 135/75
[2017-06-22 11:06] LABS: POINT-OF-CARE METER ID UU13113774
[2017-06-22 15:52] LABS: POINT-OF-CARE METER ID UU13113774
[2017-06-22 16:34] VITALS: BP 131/59
== END 2017-06-22 20:36 | disposition home or self-care (01) | DRG 690 ==
LOC: EME 15:36 → EDOF 20:08 → ENRESERV 20:09 → 5EAST 21:44
PROVIDERS: Emergency Medicine; Hospitalist
DX: N39.0 Urinary tract infection, site not specified (principal); I13.0 Hypertensive heart and chronic kidney disease with heart failure and stage 1 through stage 4 chronic kidney disease, or unspecified chronic kidney disease; R41.82 Altered mental status, unspecified; E11.65 Type 2 diabetes mellitus with hyperglycemia; E11.22 Type 2 diabetes mellitus with diabetic chronic kidney disease; N18.4 Chronic kidney disease, stage 4 (severe); Z68.39 Body mass index [BMI] 39.0-39.9, adult; E66.9 Obesity, unspecified; I25.10 Atherosclerotic heart disease of native coronary artery without angina pectoris; E78.5 Hyperlipidemia, unspecified; E03.9 Hypothyroidism, unspecified; D63.8 Anemia in other chronic diseases classified elsewhere; I27.20 Pulmonary hypertension, unspecified; I48.91 Unspecified atrial fibrillation; I50.9 Heart failure, unspecified; K21.9 Gastro-esophageal reflux disease without esophagitis; N25.81 Secondary hyperparathyroidism of renal origin; Z95.5 Presence of coronary angioplasty implant and graft; Z86.73 Personal history of transient ischemic attack (TIA), and cerebral infarction without residual deficits; Z91.81 History of falling; Z87.440 Personal history of urinary (tract) infections; Z79.82 Long term (current) use of aspirin; Z79.4 Long term (current) use of insulin; Z79.899 Other long term (current) drug therapy; I25.2 Old myocardial infarction
CPT/HCPCS: 70450; 71020; 80048; 80053; 81003; 82948; 84484; 85027; 87086; 93005; 99202; 99281; 99285; J0696; J1644; J1815; J7042; S0028